=== PATIENT | male | born 1985 | race African-American/Black ===

== ENCOUNTER 2018-07-21 10:12 | Emergency (ER) ==
[2018-07-21 10:20] VITALS: BP 103/63; TEMP 98.3; BMI 23.6
[2018-07-21] MEDS ORDERED: ZOFRAN 4 MG/2 ML IM STA (10:25)
--- NOTE | 2018-07-21 12:10 | CT ---
EXAM: CT of the abdomen pelvis without contrast History: Lower abdominal pain with nausea and vomiting. Comparison: None available. Technique: Multiplanar CT images through the abdomen pelvis were obtained without the administration of IV contrast Findings: Lung bases are clear. No acute osseous abnormalities. No discrete gallstones identified by CT. No focal liver or splenic lesions. No renal stones and no hydronephrosis. The visualized appendix is not dilated or inflamed. No peripancreatic inflammation. Adrenal glands are unremarkable. No bowel obstruction. No free air and no ascites. Bladder is no t distended. Prostate is not enlarged. No perirectal inflammation. Fluid filled nondilated loops o f small bowel. There is fluid seen in the rectum. Impression: 1. Probable mild viral gastroenteritis. There is no bowel obstruction
--- NOTE | 2018-07-21 12:31 | ED.PDOC ---
General ED Provider: Dr. ALLYSON SIMS Chief Complaint: Nausea/Vomiting Stated Complaint: abdominal pain nausea, vomiting, Time Seen by Physician: 10:29 (seen with tuan present at all times ) Mode of Arrival: Walk-In Information Source: Patient Exam Limitations: No limitations Nursing and Triage Documentation Reviewed and Agree: Yes Does patient meet sepsis criteria?: No If yes, has appropriate treatment been initiated?: No System Inflammatory Response Syndrome: Not Applicable Sepsis Protocol: For patient's 13 years and over: Temp is 96.8 and below OR 101 and greater Pulse >90 BPM Resp >20/minute Acutely Altered Mental Status Are patient's symptoms suggestive of a new infection, such as: -Pneumonia -Skin, Soft Tissue -Endocarditis -UTI -Bone, Joint Infection -Implantable Device -Acute Abdominal Infection -Wound Infection -Meningitis -Blood Stream Catheter Infection -Unknown Review of Systems - Review Of Systems Constitutional: Reports: No symptoms Eyes: Reports: No symptoms Ears, Nose, Mouth, Throat: Reports: No symptoms Respiratory: Reports: No symptoms Cardiac: Reports: No symptoms GI: Reports: No symptoms : Reports: No symptoms Musculoskeletal: Reports: No symptoms Skin: Reports: No symptoms Neurological: Reports: No symptoms Endocrine: Reports: No symptoms Hematologic/Lymphatic: Reports: No symptoms All Other Systems: Reviewed and Negative Past Medical History - Past Medical History Previously Healthy: Yes Endocrine: Reports: None Cardiovascular: Reports: None Respiratory: Reports: None Hematological: Reports: None Gastrointestinal: Reports: None Genitourinary: Reports: None Neuro/Psych: Reports: None Musculoskeletal: Reports: None Cancer: Reports: None - Surgical History General Surgical History: Reports: None - Family History Family History: Reports: None - Social History Smoking Status: Current every day smoker Hx Substance Use: No Alcohol Screening: Occasionally Physical Exam - Physical Exam Appearance: Well-appearing, No pain distress, Well-nourished Eyes: RONNELL, EOMI, Conjunctiva clear ENT: Ears normal, Nose normal, Oropharynx normal Respiratory: Airway patent, Breath sounds clear, Breath sounds equal, Respirations nonlabored Cardiovascular: RRR, Pulses normal, No rub, No murmur GI/: Soft, Nontender, No masses, Bowel sounds normal, No Organomegaly Musculoskeletal: Normal strength, ROM intact, No edema, No calf tenderness Skin: Warm, Dry, Normal color Neurological: Sensation intact, Motor intact, Reflexes intact, Cranial nerves intact, Alert, Oriented Psychiatric: Affect appropriate, Mood appropriate Interpretation - Radiology Interpretation Radiology Interpretation By: Radiologist Radiology Results: Positive (viral gastroentritis) Re-Evaluation - Re-Evaluation Time of Re-Evaluation: 12:00 Status: Improved Vital Signs Stable: Yes Pain Level: 0 Appearance: NAD Lungs: Clear Skin: Warm and Dry Neuro: Alert and Oriented X3 CV: RRR Critical Care Note - Critical Care Note Total Time (mins): 0 Course - Course Hematology/Chemistry: 07/21/18 10:30 07/21/18 10:30 Orders, Labs, Meds: Lab Review 07/21/18 07/21/18 07/21/18 10:30 10:30 10:36 WBC 8.61 RBC 5.03 Hgb 14.6 Hct 42.8 MCV 85.1 MCH 29.0 MCHC 34.1 RDW Coeff of Cyndie 14.4 Plt Count 216 Immature Gran % (Auto) 0.3 Neut % (Auto) 88.3 Lymph % (Auto) 5.3 L [place] % (Auto) 5.7 Eos % (Auto) 0.3 Baso % (Auto) 0.1 Immature Gran # (Auto) 0.0 Neut # (Auto) 7.6 H Lymph # (Auto) 0.5 L [place] # (Auto) 0.5 Eos # (Auto) 0.0 Baso # (Auto) 0.0 Sodium 138.6 Potassium 3.51 Chloride 101.5 Carbon Dioxide 28.5 Anion Gap 12.11 BUN 11.5 Creatinine 1.04 Estimated GFR (MDRD) 108.00 BUN/Creatinine Ratio 11.05 Glucose 112.4 H Calcium 9.30 Total Bilirubin 1.39 H AST 24.9 ALT 16.4 Alkaline Phosphatase 45.3 Total Protein 7.37 Albumin 4.80 Globulin 2.57 Albumin/Globulin Ratio 1.86 Amylase 72.5 Lipase 21.9 L Urine Color Yellow Urine Clarity Clear Urine pH 5.5 Ur Specific [place] 1.025 Urine Protein Trace Urine Glucose (UA) Negative Urine Ketones Negative Urine Blood Negative Urine Nitrite Negative Urine Bilirubin Negative Urine Urobilinogen 1.0 Ur Leukocyte Esterase Negative Ur Squamous Epith Cells 0-2 Influ A Molecular Assay Influ B Molecular Assay 07/21/18 10:36 WBC RBC Hgb Hct MCV MCH MCHC RDW Coeff of Cyndie Plt Count Immature Gran % (Auto) Neut % (Auto) Lymph % (Auto) [place] % (Auto) Eos % (Auto) Baso % (Auto) Immature Gran # (Auto) Neut # (Auto) Lymph # (Auto) [place] # (Auto) Eos # (Auto) Baso # (Auto) Sodium Potassium Chloride Carbon Dioxide Anion Gap BUN Creatinine Estimated GFR (MDRD) BUN/Creatinine Ratio Glucose Calcium Total Bilirubin AST ALT Alkaline Phosphatase Total Protein Albumin Globulin Albumin/Globulin Ratio Amylase Lipase Urine Color Urine Clarity Urine pH Ur Specific [place] Urine Protein Urine Glucose (UA) Urine Ketones Urine Blood Urine Nitrite Urine Bilirubin Urine Urobilinogen Ur Leukocyte Esterase Ur Squamous Epith Cells Influ A Molecular Assay Negative by naat Influ B Molecular Assay Negative by naat Orders Category Date Time Status AMYLASE Stat LAB 07/21/18 10:30 Completed CBC W/ AUTO DIFF Stat LAB 07/21/18 10:30 Completed COMPREHENSIVE METABOLIC PANEL Stat LAB 07/21/18 10:30 Completed FLU A/B MOLECULAR Stat LAB 07/21/18 10:36 Completed LIPASE Stat LAB 07/21/18 10:30 Completed URINALYSIS C & S IF INDICATED Stat LAB 07/21/18 10:36 Completed Ondansetron HCl/Pf [Zofran 4 mg/2 ml] MEDS 07/21/18 10:25 Discontinued 4 mg IM ONCE STA CT ABDOMEN/PELVIS WO CONTRAST Stat RADS 07/21/18 10:23 Completed Medications Discontinued Medications Generic Name Dose Route Start Last Admin Trade Name Freq PRN Reason Stop Dose Admin Ondansetron HCl 4 mg 07/21/18 10:25 07/21/18 10:44 Zofran 4 Mg/2 Ml IM 07/21/18 10:26 4 mg ONCE STA Administration Vital Signs: Temp Pulse Resp BP Pulse Ox 07/21/18 10:15 98.3 F 86 20 103/63 96 Departure - Departure Time of Disposition: 12:31 Disposition: HOME SELF-CARE Discharge Problem: Acute gastroenteritis, Nausea Instructions: Dehydration (ED), Gastroenteritis (ED) Condition: Good Pt referred to PMD for follow-up: Yes IPMP verified?: No Additional Instructions: Please call your Family Physician as soon as possible to schedule a follow-up appointment. Allergies/Adverse Reactions: Allergies No Known Allergies Allergy (Unverified 07/21/18 10:20) Home Medications: Ambulatory Orders 1 [No Reported Medications] 07/21/18
== END 2018-07-21 12:41 | disposition home or self-care (01) ==
LOC: ED 10:12 → EDBD 10:12 → ED 12:41
DX: K52.9 Noninfective gastroenteritis and colitis, unspecified (principal); F17.210 Nicotine dependence, cigarettes, uncomplicated
CPT/HCPCS: 36415; 80053; 81001; 82150; 83690; 85025; 87502; 96372; 99283